=== PATIENT | female | born 1985 | race Hispanic/Latino ===

== ENCOUNTER 2017-11-11 18:27 | Emergency (ER) | payer BC, SELFPAY ==
[2017-11-11 18:28] VITALS: BP 160/107; PULSE 109; RESP 18; TEMP 36.6; O2SAT 99; BMI 30.8
--- NOTE | 2017-11-11 19:05 | ED.VISSUMM ---
- ER Visit Summary Date of Service: 11/11/17 Chief Complaint: Redness at central line site History of Present Illness: The patient is a 32 F who presents with some mild redness at the site of her central line of the she noticed 2 days ago. Patient states she does have some pain when she touches the area. Patient denies any discharge or drainage. Patient denies any fevers or chills. Patient states she has a central line for plasmapheresis from her kidney transplant. Physical Examination: Vital signs are stable. Patient is afebrile. Patient is in no acute distress. Skin is warm dry. There is some mild erythema at the site of the central line. There is no induration. There is no fluctuance. There is no discharge or drainage. Heart was regular rate and rhythm. Lungs are clear and equal bilateral. There is good respiratory effort noted. Cranial nerves II through XII are intact. There are no focal motor or sensory deficits noted. The remaining physical exam is within normal limits. Emergency Department Course and Treatment: I do not think that the central line is to be removed or replaced. Patient will be given a prescription for clindamycin to cover for possible skin infection. Patient was instructed to follow-up with her transplant physicians at the [facility] in 5-7 days. Patient understood and was agreeable with the plan. All questions were answered. Disposition: Discharge home Impression: Cellulitis, mild This note was generated with [employer] dictation software. It may contain incorrect words, spelling, and punctuation that were not noted in review of the chart prior to signing ED Disposition - Plan for ED Patient: Disposition: Home or Assisted Living Chief Complaint: Wound Check Diagnosis: Cellulitis Instructions: ED Infec Skin Cellulitis Prescriptions: Clindamycin HCl [Cleocin] 300 mg PO Q6H #28 cap Referrals: Christian Ramos MD [Primary Care Provider] -
--- NOTE | 2017-11-11 19:27 | ED.RN ---
PT CVC DRESSING CHANGES BY THIS RN USING STERILE TECHNIQUE. SITE CLEANSED WITH CHLORAPREP SWAB, AIR DRIED, AND COVERED WITH CVC DRESSING WITH BIOPATCH DISC. PT TOLERATED WELL.
== END 2017-11-11 19:36 | disposition home or self-care (01) ==
LOC: ED 19:14
PROVIDERS: Emergency Provider Emergency Medicine; Family Provider Family Medicine; PCP Family Medicine
DX: L03.313 Cellulitis of chest wall (principal); Z94.0 Kidney transplant status
CPT/HCPCS: 99282

== ENCOUNTER 2019-11-30 18:19 | Emergency (ER) | payer BC, SELFPAY ==
[2019-11-30 18:20] VITALS: BP 118/90; PULSE 98; RESP 16; TEMP 37.3; O2SAT 99; BMI 32.8
--- NOTE | 2019-11-30 18:36 | RAD_ITS ---
STUDY: X-RAY CHEST REASON FOR EXAM: Female, 34 years old. Chest pain started about an hour ago. TECHNIQUE: Single AP portable view of the chest. COMPARISON: None. FINDINGS: The lungs are clear and expanded. There is no demonstrated pleural abnormality. Normal size heart. Normal mediastinum and nancy. Normal visualized pulmonary arteries. Normal visualized aortic arch and descending thoracic aorta. Normal visualized thoracic spine. Normal visualized ribs, clavicles, and shoulders. There is no demonstrated abnormality of the visualized soft tissue structures of the upper abdomen. RAD/Chest 1 View (Portable) IMPRESSION: Normal x-ray examination of the chest. Electronically Signed: Asad Luna MD at 19:10 EDT , Service support ,
--- NOTE | 2019-11-30 18:36 | EKG12_ITS ---
Test Reason : CP Blood Pressure : / mmHG Vent. Rate : 099 BPM Atrial Rate : 099 BPM P-R Int : 136 ms QRS Dur : 076 ms QT Int : 372 ms P-R-T Axes : 046 008 030 degrees QTc Int : 477 ms Normal sinus rhythm Normal ECG Confirmed by TEGAN DIAS, PARISH ([id number]), development editor GARRET DOMINGO ([id number]) on 12/05/2019 12:53:14 PM Referred By: AURY Confirmed By:PARISH JAVED MD
[2019-11-30] MEDS: Aspirin 81 MG TAB.CHEW 324 MG PO (18:45)
[2019-11-30] MEDS: Ondansetron 4 MG/2 ML Vial IV (18:46)
[2019-11-30] MEDS: Morphine 4 MG/ML Syringe IV (18:47)
[2019-11-30 18:51] VITALS: O2SAT 98
[2019-11-30 18:59] LABS: Absolute Lymphocyte Count 3.33 X10^3/uL (0.83-4.51); Absolute Neutrophil Count 6.1 X10^3/uL (2.0-7.7); Basophil# 0.04 X10^3/uL; Basophil% 0.4 % (0-1); Eosinophil# 0.06 X10^3/uL; Eosinophils% 0.6 % (0-5); Hematocrit 37.9 % (37-47); Hemoglobin 12.4 g/dL (12.0-15.0); Lymphocyte # 3.33 X10^3/ul (4.0); Lymphocyte % 32.1 % (19-41); Mean Corp Hgb Conc 32.7 g/dL (32-36); Mean Corpuscular Hgb 27.3 pg (27.0-32.0); Mean Corpuscular Volume 83.3 fL (81-99); Mean Platelet Vol. 8.5 fl (6.2-12.0); Monocyte# 0.84 X10^3/uL; Monocyte% 8.1 % (0-10); NRBC Flagged by Analyzer 0 % (0-5); Neutrophil # 6.06 X10^3/uL (2.7-7.7); Neutrophil % 58.2 % (47-70); Platelet Count 410 K/mm3 (150-450); RBC Distribution Width CV 12.7 % (11.6-14.6); RBC Distribution Width SD 38.1 fl (35.1-43.9); Red Blood Count 4.55 M/mm3 (4.2-5.4); White Blood Count 10.4 K/mm3 (4.4-11.0)
[2019-11-30 19:19] LABS: Anion Gap 10 (5-15); BUN 16 mg/dL (7-18); BUN/Creat Ratio 10.2 RATIO (10-20); Calcium,Total 8.9 mg/dL (8.5-10.1); Chloride 109 mmol/L (98-107); Creatinine, Serum 1.57 mg/dL (0.55-1.02); EST Glomerular Filtration Rate 40 mL/min (>60); Est Glom Filt Rate - Afr Amer 49 mL/min (>60); Estimated Creatinine Clearance 38.82 ml/min; Glucose 123 mg/dL (74-106); Potassium 3.4 mmol/L (3.5-5.1); Sodium Level 139 mmol/L (136-145)
[2019-11-30 19:38] VITALS: BP 121/85; PULSE 87; RESP 20; O2SAT 98
--- NOTE | 2019-11-30 21:04 | ED.DEP ---
ED Disposition - Plan for ED Patient: Instructions: ED Chest Pain Atypical Unkn Cause Referrals: Christian Ramos MD [Primary Care Provider] -
--- NOTE | 2019-11-30 21:08 | ED.VISSUMM ---
- ER Visit Summary Date of Service: 11/30/19 Chief Complaint: Chest pain History of Present Illness: The patient is a 34 F presenting with chest pain. Patient states this started approximately 1 hour prior to arrival. She was at work. She states that she does a lot of repetitive motions and lifting heavy objects. She complains of diffuse chest pain with shortness of breath. She denies diaphoresis or nausea. Denies lightheadedness or syncope. She has history of hypertension, hypercholesteremia. She had kidney transplant 2015. She is not a smoker. Physical Examination: Vitals are stable. Patient is afebrile. Alert no acute distress. HEENT exam is unremarkable. Neck is supple. Lungs are clear and equal bilaterally. Heart is regular rate and rhythm. Abdomen is soft nontender nondistended. Extremities are unremarkable. Skin is warm and dry. No focal neurologic deficit. Remainder of exam is unremarkable. Emergency Department Course and Treatment: Patient is given aspirin, morphine, Zofran. EKG is sinus rhythm rate of 99 with no acute ischemic changes. Chest x-ray shows no acute process. CBC, chemistries unremarkable other than creatinine 1.57. Patient states this is her baseline creatinine. Troponin is negative. On reevaluation patient is resting comfortably her pain is resolved. She declines a delta troponin. She will follow-up with her primary care physician. She is advised return to the ED for worsening complaints. Disposition: Discharge home Impression: Atypical chest pain This note was generated with [employer] dictation software. It may contain incorrect words, spelling, and punctuation that were not noted in review of the chart prior to signing ED Disposition - Plan for ED Patient: Instructions: ED Chest Pain Atypical Unkn Cause Referrals: Christian Ramos MD [Primary Care Provider] -
[2019-11-30 21:19] VITALS: BP 108/79
[2019-11-30 21:20] VITALS: BP 108/79; PULSE 86; RESP 15; O2SAT 98
== END 2019-11-30 21:23 | disposition home or self-care (01) ==
LOC: ED 19:01
PROVIDERS: Emergency Provider Emergency Medicine; PCP Family Medicine
DX: R07.89 Other chest pain (principal); I10 Essential (primary) hypertension; E78.00 Pure hypercholesterolemia, unspecified; Z94.0 Kidney transplant status; Z79.899 Other long term (current) drug therapy
CPT/HCPCS: 71045; 80048; 84484; 85025; 93005; 96374; 96375; 99285; A4216; J2405

== ENCOUNTER 2020-09-25 17:09 | Emergency (ER) | payer BC, SELFPAY ==
[2020-09-25 17:10] VITALS: BP 133/68; PULSE 104; RESP 18; TEMP 36.3; O2SAT 98; BMI 33.5
--- NOTE | 2020-09-25 17:27 | EDS_ITS ---
HPI History of Present Illness Chief Complaint: General Illness Narrative Narrative: Patient is a renal transplant patient for the past 5 years. She has had 2 rejections already therefore when she told her doctor that she had some loose stools and 3 episodes of vomiting 2 days ago she was told to come to the ED. She has since then improved her stools are no longer loose and they are forming. She has no further nausea or vomiting. She has no abdominal pain. She tells me she does not feel lightheaded when she stands up. She tells me she makes normal urinary output without any dysuria urgency or frequency. No recent fever or chills. No chest pain or shortness of breath. She feels back to normal almost, L5 she was at work when she is told to come to the ED [facility] Medical History (Updated 09/25/20 @ 18:[address] Leroy Looney MD) Diabetes Hypertension Home Medications tacrolimus [Envarsus Xr] 6 mg PO DAILY 11/11/17 [History Last Taken Unknown] atorvastatin 40 mg PO DAILY 11/30/19 [History Last Taken Unknown] lisinopril 10 mg PO DAILY 11/30/19 [History Last Taken Unknown] sertraline 100 mg PO DAILY 11/30/19 [History Last Taken Unknown] cholecalciferol (vitamin D3) [Vitamin D3] 50 mcg PO DAILY 09/25/20 [History Last Taken Unknown] etonogestrel 68 mg SUBDERMAL CONT 09/25/20 [History Last Taken Unknown] glimepiride 1 mg PO BREAKFAST 09/25/20 [History Last Taken Unknown] mycophenolate sodium 720 mg PO BID 09/25/20 [History Last Taken Unknown] prednisone 7.5 mg PO DAILY 09/25/20 [History Last Taken Unknown] Allergy/AdvReac Type Severity Reaction Status Date / Time shellfish derived Allergy Rash Verified 09/25/20 17:10 Surgical History (Updated 09/25/20 @ 17:30 by Nghia Ball) Kidney transplant recipient Social History Smoking Status: Never smoker ROS ROS ED ROS Narrative Past medical history: Reviewed as in HPI Medications: Reviewed Social history: Noncontributory Review of systems: All systems negative except as indicated General: No fever Eyes: No visual changes ENT: No upper airway congestion, normal voice Neck: No neck pain Cardiovascular: No chest pain Respiratory: No shortness of breath or cough Gastrointestinal: Nausea vomiting and loose stools that have improved. No abdominal pain Genitourinary: No dysuria Musculoskeletal: Denies myalgias no difficulty with ambulation Skin: No rash Neurological: No memory loss, confusion or any focal weakness Psych: No recent behavioral changes Hematologic: No easy bleeding or easy bruising EXAM Physical Exam Narrative Exam Narrative: Physical exam General: Patient is relatively comfortable in bed. Head: Normocephalic, Atraumatic Eyes: Conjunctiva not pale ENT: Moist mucous membranes Neck: Supple, Nontender, No lymphadenopathy Cardiovascular: Regular rate, Regular rhythm Respiratory: No distress, CTA bilaterally Abdomen: Soft, Nontender, Nondistended Back: Nontender, Normal Inspection. Negative for: CVA tenderness Extremities: Nontender, No edema Skin: Normal color, No rash Neurological: Alert, Normal Strength, Normal Sensation Psychological: Normal affect Const Vital Signs: 09/25/20 17:10 Temperature 97.3 F L Temperature Source Temporal Pulse Rate 104 H Respiratory Rate 18 Blood Pressure 133/68 H Blood Pressure Mean 89 Pulse Ox 98 Oxygen Delivery Method Room Air MDM MDM MDM Narrative Medical decision making narrative: Creatinine is slightly elevated from baseline, however her BUN is also elevated, she likely has some dehydration and prerenal cause. I will give her IV fluids she appears well she is no longer nauseated I believe she can safely be discharged and follow-up with her yard hostler. Lab Data Labs: Laboratory Results - last 24 hr 09/25/20 09/25/20 09/25/20 17:40 17:40 17:53 WBC 9.4 RBC 4.60 Hgb 12.3 Hct 38.0 MCV 82.6 MCH 26.7 L MCHC 32.4 RDW Std Deviation 37.6 RDW Coeff of Ivory 12.6 Plt Count 354 MPV 8.6 Immature Gran % (Auto) 0.500 Neut % (Auto) 62.3 Lymph % (Auto) 27.5 [place] % (Auto) 8.8 Eos % (Auto) 0.6 Baso % (Auto) 0.3 Absolute Neuts (auto) 5.8 Absolute Lymphs (auto) 2.57 Nucleated RBC % 0 Sodium 140 Potassium 3.6 Chloride 109 H Carbon Dioxide 23.0 Anion Gap 8 BUN 22 H Creatinine 1.83 H Estim Creat Clear Calc 32.99 Est GFR (MDRD) Af Amer 41 L Est GFR (MDRD) Non-Af 34 L BUN/Creatinine Ratio 12.0 Glucose 118 H Calcium 8.5 Total Bilirubin 0.20 AST 13 L ALT 20 Alkaline Phosphatase 79 Total Protein 7.7 Albumin 3.8 Globulin 3.9 Albumin/Globulin Ratio 1.0 Urine Color Yellow Urine Clarity Clear Urine pH 6.0 Ur Specific [place] 1.015 Urine Protein 30 H Urine Glucose (UA) Normal Urine Ketones Negative Urine Occult Blood Negative Urine Nitrite Negative Urine Bilirubin Negative Urine Urobilinogen Normal Ur Leukocyte Esterase Negative Urine RBC 0 SEEN Urine WBC 0 SEEN Ur Squamous Epith Cells 0-5 SEEN Urine Bacteria 0 SEEN Urine Mucus 0 SEEN Discharge Plan Triage Chief Complaint: General Illness ED Provider: Leroy Looney Dx/Rx/DC Orders Clinical Impression: Acute dehydration Instructions: ED Dehydration (Adult) Prescriptions: No Action Envarsus XR 1 MG tablet extended release 24 hr 6 mg PO DAILY RF: 0 atorvastatin 40 MG tablet 40 mg PO DAILY RF: 0 lisinopril 10 MG tablet 10 mg PO DAILY RF: 0 sertraline 50 MG tablet 100 mg PO DAILY RF: 0 glimepiride 1 mg tablet 1 mg PO BREAKFAST RF: 0 prednisone 2.5 mg tablet 7.5 mg PO DAILY RF: 0 mycophenolate sodium 180 mg tablet,delayed release (DR/EC) 720 mg PO BID RF: 0 etonogestrel 68 mg Implant 68 mg SUBDERMAL CONT RF: 0 cholecalciferol (vitamin D3) [Vitamin D3] 50 mcg (2,000 unit) Capsule 50 mcg PO DAILY RF: 0 Primary Care Provider: Christian Ramos Referrals: Christian Ramos MD [Primary Care Provider] - 2 Days (Also call your yard hostler to get an appointment) Disposition Disposition: Home, Self Care
[2020-09-25 17:51] LABS: Absolute Lymphocyte Count 2.57 X10^3/uL (0.83-4.51); Absolute Neutrophil Count 5.8 X10^3/uL (2.0-7.7); Basophil# 0.03 X10^3/uL; Basophil% 0.3 % (0-1); Eosinophil# 0.06 X10^3/uL; Eosinophils% 0.6 % (0-5); Hemoglobin 12.3 g/dL (12.0-15.0); Lymphocyte # 2.57 X10^3/ul (0.83-4.51); Lymphocyte % 27.5 % (19-41); Mean Corp Hgb Conc 32.4 g/dL (32-36); Mean Corpuscular Hgb 26.7 pg (27.0-32.0); Mean Corpuscular Volume 82.6 fL (81-99); Mean Platelet Vol. 8.6 fl (6.2-12.0); Monocyte# 0.82 X10^3/uL; Monocyte% 8.8 % (0-10); NRBC Flagged by Analyzer 0 % (0-5); Neutrophil # 5.83 X10^3/uL (2.7-7.7); Neutrophil % 62.3 % (47-70); Platelet Count 354 K/mm3 (150-450); RBC Distribution Width CV 12.6 % (11.6-14.6); RBC Distribution Width SD 37.6 fl (35.1-43.9); White Blood Count 9.4 K/mm3 (4.4-11.0)
[2020-09-25 18:04] LABS: Bacteria 0 SEEN /hpf (None Seen); Mucous, Urine 0 SEEN /hpf (<or=2+); Red Blood Cells-Urine 0 SEEN /hpf (0-5); White Blood Cells 0 SEEN /hpf (0-5)
[2020-09-25 18:05] LABS: AST(SGOT) 13 U/L (15-37); Alanine Aminotransfer ALT/SGPT 20 U/L (13-56); Albumin, Serum 3.8 g/dL (3.2-5.0); Alkaline Phosphatase 79 U/L (45-117); Anion Gap 8 (5-15); BUN 22 mg/dL (7-18); Calcium,Total 8.5 mg/dL (8.5-10.1); Chloride 109 mmol/L (98-107); Creatinine, Serum 1.83 mg/dL (0.55-1.02); EST Glomerular Filtration Rate 34 mL/min (>60); Est Glom Filt Rate - Afr Amer 41 mL/min (>60); Estimated Creatinine Clearance 32.99 ml/min; Globulin 3.9 g/dL (2.2-4.2); Glucose 118 mg/dL (74-106); Potassium 3.6 mmol/L (3.5-5.1); Protein, Total 7.7 g/dL (6.4-8.2); Sodium Level 140 mmol/L (136-145)
[2020-09-25 18:14] LABS: Color, Urine Yellow (Yellow); Glucose, Dipstick Normal (Normal); Ketone-Dipstick Negative (Negative); Leukocyte Esterase-Dipstick Negative /ul (Negative); Nitrite-Dipstick Negative (Negative); Occult Blood-Urine Negative /ul (Negative); Protein-Dipstick 30 mg/dl (Negative); Specific Gravity, Urine 1.015 (1.002-1.030); Urine Bilirubin Dipstick Negative (Negative); Urine Clarity Clear (Clear); Urine Urobilinogen Normal (Normal)
[2020-09-25] MEDS: 0.9% Normal Saline 1,000 ML 999 ML IV (18:25)
[2020-09-25 18:27] LABS: Squamous Epithelial Cells - UA 0-5 SEEN /hpf (5-10)
[2020-09-25 19:34] VITALS: RESP 16
== END 2020-09-25 19:34 | disposition home or self-care (01) ==
PROVIDERS: Emergency Provider Emergency Medicine; PCP Family Medicine
DX: E86.0 Dehydration (principal); E11.9 Type 2 diabetes mellitus without complications; I10 Essential (primary) hypertension; Z79.899 Other long term (current) drug therapy
CPT/HCPCS: 80053; 81001; 85025; 99284; A4216

== ENCOUNTER 2021-09-13 14:29 | Emergency (ER) | payer BC, SELFPAY ==
[2021-09-13 14:30] VITALS: BP 115/96; PULSE 115; RESP 20; TEMP 36.8; O2SAT 98; BMI 31.1
--- NOTE | 2021-09-13 15:03 | EX.ED.DYSGE1 ---
HPI History of Present Illness Chief Complaint: Abscess Narrative Narrative: Patient presents with left buttock pain, she was seen in the outpatient environment she was quite tender and they were unable to drain it. She was sent to the ED. She has no fever or chills. However she does have a history of renal transplant and she is immunosuppressed and she is a diabetic. No fever or chills. No diarrhea or constipation. [facility] PFS Medical History Diabetes Hypertension Home Medications tacrolimus 1 mg tablet,extended release 24 hr (Envarsus XR) 6 mg PO DAILY 11/11/17 [History Last Taken Unknown] atorvastatin 40 mg tablet 40 mg PO DAILY 11/30/19 [History Last Taken Unknown] lisinopril 10 mg tablet 10 mg PO DAILY 11/30/19 [History Last Taken Unknown] sertraline 50 mg tablet 100 mg PO DAILY 11/30/19 [History Last Taken Unknown] cholecalciferol (vitamin D3) 50 mcg (2,000 unit) capsule (Vitamin D3) 50 mcg PO DAILY 09/25/20 [History Last Taken Unknown] etonogestrel 68 mg subdermal implant 68 mg subdermal CONT 09/25/20 [History Last Taken Unknown] glimepiride 1 mg tablet 1 mg PO BREAKFAST 09/25/20 [History Last Taken Unknown] mycophenolate sodium 180 mg tablet,delayed release 720 mg PO BID 09/25/20 [History Last Taken Unknown] prednisone 2.5 mg tablet 7.5 mg PO DAILY 09/25/20 [History Last Taken Unknown] clindamycin HCl 300 mg capsule (Cleocin HCl) 300 mg PO Q6H #28 caps 09/13/21 [Rx Last Taken Unknown] hydrocodone-acetaminophen 5-325mg 5mg-325mg 1 tab PO Q6H 3 days #12 tabs 09/13/21 [Rx Last Taken Unknown] Allergy/AdvReac Type Severity Reaction Status Date / Time shellfish derived Allergy Rash Verified 09/13/21 14:35 Surgical History Kidney transplant recipient Social History Smoking Status: Never smoker ROS ROS ED ROS Narrative Past medical history: Reviewed Medications: Reviewed Social history: Noncontributory Review of systems: All systems negative except as indicated General: No fever Neck: No neck pain Cardiovascular: No chest pain Respiratory: No shortness of breath or cough Gastrointestinal: No abdominal pain, nausea vomiting or diarrhea Genitourinary: No dysuria. Rectal pain as in HPI Musculoskeletal: Denies myalgias no difficulty with ambulation Skin: No rash Neurological: No memory loss, confusion or any focal weakness Psych: No recent behavioral changes Hematologic: No easy bleeding or easy bruising EXAM Physical Exam Narrative Exam Narrative: Physical exam General: Patient appears uncomfortable but she does not appear ill. Head: Normocephalic, Atraumatic Eyes: Conjunctiva not pale ENT: Moist mucous membranes Neck: Supple, Nontender, No lymphadenopathy Cardiovascular: Regular rate, Regular rhythm Respiratory: No distress, CTA bilaterally Abdomen: Soft, Nontender, Nondistended : Patient has a left sided perianal abscess. There seems to be no rectal involvement. There are some hemorrhoids but they are not painful. Back: Nontender, Normal Inspection. Negative for: CVA tenderness Extremities: Nontender, No edema Skin: Normal color, No rash Neurological: Alert, Normal Strength, Normal Sensation Psychological: Normal affect Const Vital Signs: 09/13/21 14:30 09/13/21 16:31 Temperature 98.2 F Temperature Source Temporal Pulse Rate 115 H 102 H Respiratory Rate 20 H 18 Blood Pressure 115/96 H Blood Pressure Mean 102 Pulse Ox 98 98 Oxygen Delivery Method Room Air Room Air MDM MDM MDM Narrative Medical decision making narrative: Incision and drainage was done by me, otherwise patient appears well, she has a creatinine at 2.77 although this is improving over the past few months and she has had pneumonia. She appears well and I will discharge her with oral antibiotics. Lab Data Labs: Laboratory Results - last 24 hr 09/13/21 09/13/21 15:25 15:25 WBC 13.4 H RBC 3.47 L Hgb 10.0 L Hct 30.2 L MCV 87.0 MCH 28.8 MCHC 33.1 RDW Std Deviation 44.4 H RDW Coeff of Ivory 14.6 Plt Count 179 MPV 9.9 Immature Gran % (Auto) 1.700 H Neut % (Auto) 80.7 H Lymph % (Auto) 10.5 [place] % (Auto) 6.9 Eos % (Auto) 0.1 Baso % (Auto) 0.1 Absolute Neuts (auto) 10.8 H Absolute Lymphs (auto) 1.40 Nucleated RBC % 0.1 Differential Comment SCANNED Sodium 139 Potassium 3.3 L Chloride 113 H Carbon Dioxide 17.0 L Anion Gap 9 BUN 40 H Creatinine 2.77 H Estim Creat Clear Calc 21.59 Est GFR (MDRD) Af Amer 25 L Est GFR (MDRD) Non-Af 21 L BUN/Creatinine Ratio 14.4 Glucose 131 H Calcium 8.3 L Total Bilirubin 0.60 AST 11 L ALT 23 Alkaline Phosphatase 89 Total Protein 6.4 Albumin 2.9 L Globulin 3.5 Albumin/Globulin Ratio 0.8 L Procedures Other Procedures Procedure(s): Incision and drainage Verbal consent obtained Left buttock perianal abscess I did give the patient Dilaudid prior to this but we did not do procedural sedation 1% lidocaine about 6 mL, I used a #11 blade to make an incision which I then ellipsed with scissors Copious amounts amounts of pus were expectorated and I used hemostats to break them up Wound was left open Patient tolerated procedure well Discharge Plan Triage Chief Complaint: Abscess ED Provider: Leroy Looney Dx/Rx/DC Orders Clinical Impression: Chronic renal failure, Abscess of buttock Instructions: ED Abscess Incision And Drainage Prescriptions: New hydrocodone-acetaminophen 5-325 mg tablet 1 tab PO Q6H 3 Days Qty: 12 0RF clindamycin HCl [Cleocin HCl] 300 mg capsule 300 mg PO Q6H Qty: 28 0RF No Action Envarsus XR 1 MG tablet extended release 24 hr 6 mg PO DAILY atorvastatin 40 MG tablet 40 mg PO DAILY lisinopril 10 MG tablet 10 mg PO DAILY sertraline 50 MG tablet 100 mg PO DAILY glimepiride 1 mg tablet 1 mg PO BREAKFAST Label Comments: TAKE 1 TABLET BY MOUTH EVERY DAY WITH BREAKFAST prednisone 2.5 mg tablet 7.5 mg PO DAILY mycophenolate sodium 180 mg tablet,delayed release (DR/EC) 720 mg PO BID etonogestrel 68 mg Implant 68 mg SUBDERMAL CONT cholecalciferol (vitamin D3) [Vitamin D3] 50 mcg (2,000 unit) Capsule 50 mcg PO DAILY Primary Care Provider: Christian Ramos Referrals: Christian Ramos MD [Primary Care Provider] - 3-5 Days Disposition Disposition: Home, Self Care
[2021-09-13 15:34] LABS: Absolute Neutrophil Count 10.8 X10^3/uL (2.0-7.7); Basophil# 0.02 X10^3/uL; Basophil% 0.1 % (0-1); Eosinophil# 0.02 X10^3/uL; Eosinophils% 0.1 % (0-5); Hematocrit 30.2 % (37-47); Lymphocyte % 10.5 % (19-41); Mean Corp Hgb Conc 33.1 g/dL (32-36); Mean Corpuscular Hgb 28.8 pg (27.0-32.0); Mean Platelet Vol. 9.9 fl (6.2-12.0); Monocyte# 0.92 X10^3/uL; Monocyte% 6.9 % (0-10); NRBC Flagged by Analyzer 0.1 % (0-5); Neutrophil # 10.79 X10^3/uL (2.7-7.7); Neutrophil % 80.7 % (47-70); POSITIVE COUNT YES; Platelet Count 179 K/mm3 (150-450); RBC Distribution Width CV 14.6 % (11.6-14.6); RBC Distribution Width SD 44.4 fl (35.1-43.9); Red Blood Count 3.47 M/mm3 (4.2-5.4); White Blood Count 13.4 K/mm3 (4.4-11.0)
[2021-09-13 15:50] LABS: ALB/GLOB Ratio 0.8 RATIO (0.9-2.4); AST(SGOT) 11 U/L (15-37); Alanine Aminotransfer ALT/SGPT 23 U/L (13-56); Albumin, Serum 2.9 g/dL (3.2-5.0); Alkaline Phosphatase 89 U/L (45-117); Anion Gap 9 (5-15); BUN 40 mg/dL (7-18); BUN/Creat Ratio 14.4 RATIO (10-20); Calcium,Total 8.3 mg/dL (8.5-10.1); Chloride 113 mmol/L (98-107); Creatinine, Serum 2.77 mg/dL (0.55-1.02); EST Glomerular Filtration Rate 21 mL/min (>60); Est Glom Filt Rate - Afr Amer 25 mL/min (>60); Estimated Creatinine Clearance 21.59 ml/min; Globulin 3.5 g/dL (2.2-4.2); Glucose 131 mg/dL (74-106); Potassium 3.3 mmol/L (3.5-5.1); Protein, Total 6.4 g/dL (6.4-8.2); Sodium Level 139 mmol/L (136-145)
[2021-09-13 15:58] LABS: Differential Indicated SCAN CRITERIA MET
[2021-09-13 15:59] LABS: Differential Comment SCANNED
[2021-09-13] MEDS: HYDROmorphone 1 MG/ML Syringe 2 MG IM (16:04)
[2021-09-13] MEDS: Ondansetron 4 MG/2 ML Vial IV (16:13)
[2021-09-13] MEDS: Clindamycin 600 MG/50 ML BAG 100 MG IV (16:14)
[2021-09-13 16:31] VITALS: PULSE 102; RESP 18; O2SAT 98
== END 2021-09-13 17:11 | disposition home or self-care (01) ==
PROVIDERS: Emergency Provider Emergency Medicine; PCP Family Medicine; Visit Provider Emergency Medicine
DX: L02.31 Cutaneous abscess of buttock (principal); E11.22 Type 2 diabetes mellitus with diabetic chronic kidney disease; N18.9 Chronic kidney disease, unspecified; I12.9 Hypertensive chronic kidney disease with stage 1 through stage 4 chronic kidney disease, or unspecified chronic kidney disease; Z94.0 Kidney transplant status; Z79.84 Long term (current) use of oral hypoglycemic drugs; Z79.899 Other long term (current) drug therapy
CPT/HCPCS: 10060; 80053; 85025; 96365; 96372; 96375; 99281; J7050; A4216; J2405

== ENCOUNTER 2021-10-21 04:14 | Emergency (ER) | payer BC, SELFPAY ==
[2021-10-21 04:15] VITALS: BP 195/128; PULSE 92; RESP 20; TEMP 37.1; O2SAT 98; BMI 31.5
--- NOTE | 2021-10-21 04:41 | EX.ED.DYSGE1 ---
HPI History of Present Illness Chief Complaint: Hypertension Informant: patient and spouse/S.O. Onset/Context/Timing Onset: Yesterday Context: Gradual Onset Timing: Continuous Quality: aching Location: diffuse headache Current Severity: Moderate Maximum Severity: Moderate Worsened by: nothing Relieved by: nothing Associated Symptoms Associated Symptoms: a little nausea Narrative Narrative: Patient has had a headache that started gradually yesterday, she thought it was because of work and stress, etc. This morning she woke up and it was fairly prominent so she checked her blood pressure and noticed it was around 200/120. She has never had a blood pressure this high before, she has a history of a renal transplant from about 7 years ago that was done in the [facility] because of glomerulonephritis, she follows at [facility] locally for this now. She does not have any pain over her right lower quadrant renal transplant. She has had no problems urinating recently. 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 She has been compliant with her antirejection medications. A couple months ago she had COVID-pneumonia with COURTNEY according to her, and was admitted to [facility] because of that and her renal transplant. She was on lisinopril and I discontinued that. She states since then, her creatinine has been getting better. Last week they started her back on amlodipine 5 mg, she is on no other blood pressure medications right now, and she had been in the 160s systolic. [facility] Medical History (Updated 10/21/21 @ 05:[address] Braxton Phillips MD) Diabetes Glomerulonephritis Hypertension Home Medications tacrolimus 1 mg tablet,extended release 24 hr (Envarsus XR) 6 mg PO DAILY 11/11/17 [History Last Taken Unknown] atorvastatin 40 mg tablet 40 mg PO DAILY 11/30/19 [History Last Taken Unknown] sertraline 50 mg tablet 100 mg PO DAILY 11/30/19 [History Last Taken Unknown] cholecalciferol (vitamin D3) 50 mcg (2,000 unit) capsule (Vitamin D3) 50 mcg PO DAILY 09/25/20 [History Last Taken Unknown] etonogestrel 68 mg subdermal implant 68 mg subdermal CONT 09/25/20 [History Last Taken Unknown] glimepiride 1 mg tablet 1 mg PO BREAKFAST 09/25/20 [History Last Taken Unknown] mycophenolate sodium 180 mg tablet,delayed release 720 mg PO BID 09/25/20 [History Last Taken Unknown] prednisone 2.5 mg tablet 7.5 mg PO DAILY 09/25/20 [History Last Taken Unknown] hydrocodone-acetaminophen 5-325mg 5mg-325mg 1 tab PO Q6H 3 days #12 tabs 09/13/21 [Rx Last Taken Unknown] amlodipine 5 mg tablet 1 tab PO DAILY 10/21/21 [History Last Taken Unknown] valganciclovir 450 mg tablet 1 tab PO DAILY 10/21/21 [History Last Taken Unknown] Allergy/AdvReac Type Severity Reaction Status Date / Time shellfish derived Allergy Rash Verified 10/21/21 04:15 Surgical History Kidney transplant recipient Social History Smoking Status: Never smoker ROS ROS ED Constitutional Constitutional ED: Denies chills or fever(s) Eyes Eyes: Denies change in vision or diplopia ENT ENT ED: Denies rhinorrhea or sore throat Cardiovascular Cardiovascular: Denies chest pain or palpitations Respiratory/Chest Respiratory/Chest: Denies cough or dyspnea Gastrointestinal Gastrointestinal: Reports nausea; Denies abdominal pain, diarrhea or vomiting Genitourinary Genitourinary ED: Denies dysuria or hematuria Musculoskeletal Musculoskeletal: Denies back pain or neck pain Integumentary Denies abscess or rash Neurologic Neurologic: Reports headache(s); Denies paresthesias or weakness Psychiatric Psychiatric: Denies anxiety or suicidal thoughts EXAM Physical Exam Const Vital Signs: 10/21/21 04:15 10/21/21 04:21 10/21/21 04:57 Temperature 98.8 F Temperature Source Oral Pulse Rate 92 Respiratory Rate 20 H Respiratory Effort Normal Respiratory Pattern Normal Blood Pressure 195/128 H 165/117 H Blood Pressure Mean 150 133 Pulse Ox 98 Oxygen Delivery Method Room Air 10/21/21 05:12 10/21/21 05:33 Temperature Temperature Source Pulse Rate Respiratory Rate Respiratory Effort Respiratory Pattern Blood Pressure 173/117 H 150/111 H Blood Pressure Mean 135 124 Pulse Ox Oxygen Delivery Method Positive well nourished and well developed General Appearance ED: well developed and NAD HEENT Reports moist mucous membranes normocephalic and atraumatic Eyes PERRL and EOMs intact bilaterally Neck full ROM and supple Resp normal respiratory effort and clear to auscultation bilaterally Cardio regular rate, regular rhythm and no murmurs GI non-tender and non-distended GI Narrative: Well-healed right lower quadrant surgical scar. Renal transplant in this area palpable and nontender without any overlying erythema or other abnormality. Auscultation: normoactive bowel sounds Palpation: soft Back/Spine no CVA tenderness General Back: other FROM Extremity normal to inspection General Extremety ED: Negative for edema, pulses abnormal or tenderness General Extremity: Negative for edema or pulses abnormal Neuro oriented x3, CN's II-XII intact bilaterally and no sensory deficits noted Sensorium / Orientation: awake and alert Motor Exam: strength 5/5 throughout Skin no rashes or lesions noted and no wounds MDM MDM MDM Narrative Medical decision making narrative: Patient was given IV hydralazine 10 mg in addition to clonidine 0.2 mg, while we checked her renal function and blood counts. Her creatinine is 2.49. She recently had levels that were 2.28 and 2.07 within the past approximately 2 and 4 weeks, respectively. Her BUN is 18 right now, and I do not think she needs to be emergently transferred/admitted for this and does not appear to be in acute rejection. She does need to follow-up closely with her specialists, however. While watching her after the above medications, her pressure came down to 150 systolic and she was feeling better although the headache was still there, so I gave her another dose of hydralazine 10 mg IV. On reevaluation, she is feeling better still and her blood pressure is 146/92. I discussed with patient that I would recommend contacting her clinical education coordinator/team to see if they would like to change anything now, and/or admit/transfer her. The patient does not want me to call her clinical education coordinator, she states she does not go through them anymore and goes through her operations representative directly, however they are not in right now since it is the middle of the night. She prefers to go home and contact them in the morning for further instructions. Lab Data Attestation: I reviewed the patient's lab results. Labs: Laboratory Results - last 24 hr 10/21/21 10/21/21 04:48 04:48 WBC 5.8 RBC 4.20 Hgb 12.3 Hct 36.4 L MCV 86.7 MCH 29.3 MCHC 33.8 RDW Std Deviation 44.8 H RDW Coeff of Ivory 14.3 Plt Count 263 MPV 8.6 Immature Gran % (Auto) 0.500 Neut % (Auto) 75.9 H Lymph % (Auto) 20.0 Union % (Auto) 3.1 Eos % (Auto) 0.2 Baso % (Auto) 0.3 Absolute Neuts (auto) 4.4 Absolute Lymphs (auto) 1.16 Nucleated RBC % 0 Sodium 136 Potassium 3.0 L Chloride 105 Carbon Dioxide 22.0 Anion Gap 9 BUN 18 Creatinine 2.49 H Estim Creat Clear Calc 24.02 Est GFR (MDRD) Af Amer 28 L Est GFR (MDRD) Non-Af 23 L BUN/Creatinine Ratio 7.2 L Glucose 225 H Calcium 8.3 L Discharge Plan Triage Chief Complaint: Hypertension ED Provider: Braxton Phillips Dx/Rx/DC Orders Clinical Impression: Accelerated hypertension, Renal insufficiency, Transplanted kidney Instructions: Hypertension Dc Prescriptions: No Action Envarsus XR 1 MG tablet extended release 24 hr 6 mg PO DAILY atorvastatin 40 MG tablet 40 mg PO DAILY sertraline 50 MG tablet 100 mg PO DAILY glimepiride 1 mg tablet 1 mg PO BREAKFAST Label Comments: TAKE 1 TABLET BY MOUTH EVERY DAY WITH BREAKFAST prednisone 2.5 mg tablet 7.5 mg PO DAILY mycophenolate sodium 180 mg tablet,delayed release (DR/EC) 720 mg PO BID etonogestrel 68 mg Implant 68 mg SUBDERMAL CONT cholecalciferol (vitamin D3) [Vitamin D3] 50 mcg (2,000 unit) Capsule 50 mcg PO DAILY hydrocodone-acetaminophen 5-325 mg tablet 1 tab PO Q6H 3 Days Qty: 12 0RF valganciclovir 450 mg tablet 1 tab PO DAILY Label Comments: TAKE 1 TABLET BY MOUTH EVERY DAY amlodipine 5 mg tablet 1 tab PO DAILY Primary Care Provider: Christian Ramos Referrals: operations representative, your [facility] [Other] - As soon as possible Christian Ramos MD [Primary Care Provider] - Activity Restrictions/Additional Instructions: Contact your operations representative [facility] to see if they want to change her medications, bring you into the hospital, and/or get levels of your antirejection medications. Disposition Disposition: Home, Self Care
[2021-10-21] MEDS: hydrALAZINE 20 MG/ML Vial 10 MG IV ×2 (04:45→05:40)
[2021-10-21] MEDS: cloNIDine HCl 0.2 MG Tablet PO (04:50)
[2021-10-21 04:54] LABS: Absolute Lymphocyte Count 1.16 X10^3/uL (0.83-4.51); Absolute Neutrophil Count 4.4 X10^3/uL (2.0-7.7); Basophil# 0.02 X10^3/uL; Basophil% 0.3 % (0-1); Eosinophil# 0.01 X10^3/uL; Eosinophils% 0.2 % (0-5); Hematocrit 36.4 % (37-47); Hemoglobin 12.3 g/dL (12.0-15.0); Lymphocyte # 1.16 X10^3/ul (0.83-4.51); Mean Corp Hgb Conc 33.8 g/dL (32-36); Mean Corpuscular Hgb 29.3 pg (27.0-32.0); Mean Corpuscular Volume 86.7 fL (81-99); Mean Platelet Vol. 8.6 fl (6.2-12.0); Monocyte# 0.18 X10^3/uL; Monocyte% 3.1 % (0-10); NRBC Flagged by Analyzer 0 % (0-5); Neutrophil # 4.41 X10^3/uL (2.7-7.7); Neutrophil % 75.9 % (47-70); Platelet Count 263 K/mm3 (150-450); RBC Distribution Width CV 14.3 % (11.6-14.6); RBC Distribution Width SD 44.8 fl (35.1-43.9); White Blood Count 5.8 K/mm3 (4.4-11.0)
[2021-10-21 04:57] VITALS: BP 165/117
[2021-10-21 05:08] LABS: Anion Gap 9 (5-15); BUN 18 mg/dL (7-18); BUN/Creat Ratio 7.2 RATIO (10-20); Calcium,Total 8.3 mg/dL (8.5-10.1); Chloride 105 mmol/L (98-107); Creatinine, Serum 2.49 mg/dL (0.55-1.02); EST Glomerular Filtration Rate 23 mL/min (>60); Est Glom Filt Rate - Afr Amer 28 mL/min (>60); Estimated Creatinine Clearance 24.02 ml/min; Glucose 225 mg/dL (74-106); Sodium Level 136 mmol/L (136-145)
[2021-10-21 05:12] VITALS: BP 173/117
[2021-10-21 05:33] VITALS: BP 150/111
[2021-10-21 06:28] VITALS: BP 146/92
== END 2021-10-21 06:32 | disposition home or self-care (01) ==
PROVIDERS: Emergency Provider Emergency Medicine; PCP Family Medicine; Visit Provider Emergency Medicine
DX: I10 Essential (primary) hypertension (principal); E11.9 Type 2 diabetes mellitus without complications; N28.9 Disorder of kidney and ureter, unspecified; Z94.0 Kidney transplant status; Z79.84 Long term (current) use of oral hypoglycemic drugs; Z79.899 Other long term (current) drug therapy; Z86.16 Personal history of COVID-19
CPT/HCPCS: 80048; 85025; 96374; 96376; 99284; A4216